=== PATIENT | female | born 1985 | race Two or more races ===

== ENCOUNTER 2021-05-02 06:15 | Day surgery (SDC) | payer OTHER ==
[2021-05-02] MEDS ORDERED: NEXIUM 24HR20 MG PO (08:57)
[2021-05-02] MEDS ORDERED: CARAFATE1 GM/10 ML PO (08:57)
== END 2021-05-02 10:30 | disposition home or self-care (01) ==
LOC: AMB-ENDOS 06:15
PROVIDERS: ATTEND Surgery
DX: K29.50 Unspecified chronic gastritis without bleeding (principal); K44.9 Diaphragmatic hernia without obstruction or gangrene; Z20.822 Contact with and (suspected) exposure to COVID-19

== ENCOUNTER → 2023-10-01 | Day surgery (SDC) | payer OTHER ==
[~2023-10-01] MED LIST: CARAFATE1 GM PO; CARAFATE1 GM/10 ML PO; NEXIUM 24HR20 MG PO
== END | disposition home or self-care (01) ==
LOC: ADM 09-24 13:00 → AMB-ENDOS 06:36
PROVIDERS: ATTEND Surgery
DX: K29.50 Unspecified chronic gastritis without bleeding (principal); R10.13 Epigastric pain; K44.9 Diaphragmatic hernia without obstruction or gangrene; Z20.822 Contact with and (suspected) exposure to COVID-19; A04.8 Other specified bacterial intestinal infections